=== PATIENT | female | born 1985 | race Caucasian/White ===

== ENCOUNTER 2016-08-28 19:17 | Emergency (ER) | payer BC ==
[2016-08-28 20:04] VITALS: BP 107/59
[2016-08-28] MEDS ORDERED: Tetan/Diph/Pertus SYR(Tdap)* 0.5 ML SYR(BOOSTRIX) use SYR IM ONE (20:34)
[2016-08-28] MEDS ORDERED: Lidocain 1% EPI 1:100,000 * 30 ML MDV INJ ONE (20:34)
[2016-08-28] MEDS ORDERED: Lidocaine 1% MPF wEPI 200,000* 30 ML SDV ONE (20:34)
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
== END 2016-08-28 21:35 | disposition home or self-care (01) ==
LOC: UCEAST 19:17
DX: S51.011A Laceration without foreign body of right elbow, initial encounter (principal); S40.811A Abrasion of right upper arm, initial encounter; V18.0XXA Pedal cycle driver injured in noncollision transport accident in nontraffic accident, initial encounter; Y93.55 Activity, bike riding; Y92.9 Unspecified place or not applicable; Z23 Encounter for immunization
CPT/HCPCS: 12001; 90471; 90715; 99211; G0463; J2001